=== PATIENT | female | born 1995 | race Caucasian/White ===

== ENCOUNTER 2018-11-13 06:58 | Emergency (ER) | payer OTHER ==
--- NOTE | 2018-11-13 07:19 | Emergency Department Record ---
History of Present Illness - General Chief Complaint: Ankle/Foot Injury Stated Complaint: ANKLE PAIN Time Seen by Provider: 11/13/18 07:00 Source: Patient Mode of Arrival: Ambulatory Limitations: No limitations - History of Present Illness Initial Comments: The patient is here due to a 3 week hx of L ankle and foot pain. She denies any injury or trauma and states the ankle just started hurting. The patient did go to the a week ago and had neg xrays of the L ankle and foot. Since the pain has not improved. The patient was instructed to see her PCP but since her doctor is in [place] and she is in the process of finding a new doctor she decided to come here. The patient denies any new injury or trauma. MD Complaint: Other Onset/Timin -: Week(s) Severity: Moderate Severity scale (1-10): 7 Improves With: Nothing Worsens With: Nothing - Related Data Previous Rx's Medication Instructions Recorded Naproxen [Naprosyn] 500 mg PO BID #20 tablet. 11/13/18 Allergies Allergy/AdvReac Type Severity Reaction Status Date / Time latex Allergy RASH Verified 11/13/18 07:08 Travel Screening - Travel/Exposure Within Last 30 Days Have you traveled within the last 30 days?: No Review of Systems Constitutional: Denies: Chills, Fever Past Medical History - SOCIAL HISTORY Smoking Status: Never smoker Alcohol Use: None Drug Use: None - RESPIRATORY Hx Respiratory Disorders: Yes Hx Asthma: Yes - CARDIOVASCULAR Hx Cardio Disorders: No - NEURO Hx Neuro Disorders: No - GI Hx GI Disorders: No - Hx Genitourinary Disorders: No Comment:: endometreosis - ENDOCRINE Hx Endocrine Disorders: No - MUSCULOSKELETAL Hx Musculoskeletal Disorders: No - PSYCH Hx Psych Problems: No - HEMATOLOGY/ONCOLOGY Hx Hematology/Oncology Disorders: No Family Medical History Any Significant Family History?: No Physical Exam - General General Appearance: Alert, Cooperative, No acute distress - Head Head exam: Atraumatic - Eye Eye exam: Normal appearance - Extremities Extremities exam: Normal inspection (There is no swelling or bruising appreciated. ), Full ROM, Normal capillary refill, Tenderness (There is tenderness to the L anterior Talo-fibular area. There is normal ROM with mild pain and neg for ligamentous laxity. ), Other (The L foot is NVI.). negative: Joint swelling - Neurological Neurological exam: Alert, Oriented X3. negative: Motor sensory deficit - Psychiatric Psychiatric exam: negative: Anxious - Skin Skin exam: negative: Rash Course Vital Signs 11/13/18 07:03 Temperature 98.0 F Pulse Rate 96 H Respiratory 20 Rate Blood Pressure 132/82 Pulse Ox 99 - Reevaluation(s) Reevaluation #1: I did review the xrays from last week that were neg. I did also explain to the patient that I really could not explain the pain but will place the patient in a better splint and will try Naprosyn for pain. She is to F/U with a PCP next week for recheck. 11/13/18 07:23 Disposition Disposition: Discharge Clinical Impression: Ankle pain, left Qualifiers: Chronicity: acute Qualified Code(s): M25.572 - Pain in left ankle and joints of left foot Disposition: Home, Self-Care Condition: (2) Stable Instructions: Arthralgia (ED) Additional Instructions: Please wear the L ankle splint for a week and use Naprosyn for pain. Please ice and elevate the L ankle when possible and see a family doctor next week if not better. Prescriptions: Naproxen [Naprosyn] 500 mg PO BID #20 tablet.dr Forms: Patient Portal Access Time of Disposition: 07:19 Quality - Quality Measures Quality Measures: N/A - Blood Pressure Screening View Details: Yes Does Patient Have Any of the Following: No Blood Pressure Classification: Pre-Hypertensive BP Reading Systolic Measurement: 132 Diastolic Measurement: 82 Screening for High Blood Pressure: < Pre-Hypertensive BP, F/U Documented > [[id number]] Pre-Hypertensive Follow-up Interventions: Referral to alternative/primary care provider.
== END 2018-11-13 07:51 | disposition home or self-care (01) ==
LOC: ER 06:58
DX: M25.572 Pain in left ankle and joints of left foot (principal)
CPT/HCPCS: 99282